=== PATIENT | male | born 1980 | race Caucasian/White ===

== ENCOUNTER 2023-09-01 13:53 | Emergency (ER) | payer SELFPAY ==
[~2023-09-01] VITALS: Ht 180.3 cm; Wt 68.2 kg
[2023-09-01] MEDS ORDERED: LIDOCAINE 1%/EPI 1:100,000 inj. 10 ML multi-dose vial IJ ONE (15:00)
[2023-09-01] MEDS ORDERED: TETanus/Pertussis (Acell)/Diphther VAC/PF (Tdap-Adult) 0.5ml syringe IMVAC ONE (15:00)
[2023-09-01 16:11] VITALS: BP 119/78; PULSE 67; RESP 16; TEMP 97.9; O2SAT 97
== END 2023-09-01 16:13 | disposition home or self-care (01) ==
LOC: ER 13:53
DX: S61.011A Laceration without foreign body of right thumb without damage to nail, initial encounter (principal); X58.XXXA Exposure to other specified factors, initial encounter; Y93.89 Activity, other specified; Y92.89 Other specified places as the place of occurrence of the external cause; Y99.8 Other external cause status
CPT/HCPCS: 12031; 90471; 90715; 99284; J7030; 12001; 99283; A6258; A6449